=== PATIENT | female | born 1960 | race Hispanic/Latino ===

== ENCOUNTER 2019-12-25 11:15 | Outpatient (CLI) | payer BC, OTHER | END 2019-12-25 11:16 | disposition home or self-care (01) | LOC: LABHHL 11:15 | PROVIDERS: ATTEND Surgery | DX: N63.41 Unspecified lump in right breast, subareolar (principal) | CPT/HCPCS: 88305 ==

== ENCOUNTER 2021-02-02 13:32 | Outpatient (CLI) | payer BC ==
--- NOTE | 2021-02-03 09:15 | Mammography Report ---
DIGITAL DIAGNOSTIC MAMMOGRAM WITH CAD CONVENTIONAL, 02/02/2021 CLINICAL INFORMATION / INDICATION: PERSONAL HX OF BREAST CA Z85.3/ BREAST CA C50.919 TECHNIQUE: Digital bilateral mammographic imaging was performed. This examination was interpreted with the benefit of Computer-aided Detection analysis. COMPARISON: 12/24/2019 FINDINGS: Breast Density: The breasts are extremely dense, which lowers the sensitivity of mammography. Study was difficult in there is mild motion artifact. I do not believe there was radiologist review p rior to patient's departure. Calcifications on the left are not significantly changed. A dense nodule with coarse calcifications i n the upper outer quadrant mid depth has a benign type of appearance. However, increasing pleomorphic and partly branching grouped microcalcifications are seen in the upper-outer quadrant anterior to mi d depth on the right. IMPRESSION: Worrisome grouped calcifications in the right Follow up recommendation: Right magnification views BI-RADS Category 0: Incomplete. Needs additional imaging evaluation and/or prior mammograms for ariel rison. A "normal" or negative report should not discourage follow up or biopsy of a clinically significant f inding. A written summary of these findings will be mailed to the patient. The patient will be entered into a mammography reporting system which will generate a reminder letter for the patient's next appointmen t at the appropriate interval. According to the [employer], yearly mammograms are recommended starting at age 40 and continuing as long as a woman is in good health. Breast MRI is recommended for women with an kaitlynn roximately 20-25% or greater lifetime risk of breast cancer, including women with a strong family his tory of breast or ovarian cancer and women who have been treated for Hodgkin's disease. Signer Name: Rinku Dias MD Signed: 02/03/2021 9:10 AM Workstation Name: [id number]
== END 2021-02-02 13:33 | disposition home or self-care (01) ==
LOC: SPVWC 13:32
PROVIDERS: ATTEND Internal Medicine Hematology & Oncology
DX: C50.912 Malignant neoplasm of unspecified site of left female breast (principal); Z85.3 Personal history of malignant neoplasm of breast; R92.1 Mammographic calcification found on diagnostic imaging of breast
CPT/HCPCS: 77066